=== PATIENT | male | born 1940 | race Caucasian/White ===

== ENCOUNTER 2017-06-22 06:23 | Inpatient (IN) ==
[2017-06-22] MEDS ORDERED: ceFAZolin 1,000 MG VIAL ONE (07:04)
[2017-06-22] MEDS ORDERED: SODIUM CHLORIDE 0.9% 100 ML IV ONE (07:04)
[2017-06-22] MEDS: LACTATED RINGERS 1,000 ML IV SCH (07:41)
[2017-06-22] MEDS ORDERED: HEPARIN 5,000 UNIT/1 ML VIAL ONE (07:47)
[2017-06-22] MEDS ORDERED: VANCOMYCIN 1,000 MG VIAL ONE (07:47)
[2017-06-22] MEDS ORDERED: BISACODYL 5 MG TABLET PO PRN (08:08)
[2017-06-22] MEDS ORDERED: DEXTROSE 50% 25 GM/50 ML VIAL IV PRN (08:08)
[2017-06-22] MEDS ORDERED: GLUCAGON 1 MG VIAL IM PRN (08:08)
[2017-06-22] MEDS ORDERED: ACETAMINOPHEN 325 MG TABLET PO PRN (08:08)
[2017-06-22] MEDS ORDERED: ONDANSETRON 4 MG/2 ML VIAL IV PRN (08:08)
--- NOTE | 2017-06-22 08:20 | History and Physical Update ---
History and Physical Update - Physical Exam Mental Status: alert and oriented Heart: regular rate and rhythm Lung: clear to auscultation Abdomen: within normal limits Vitals: within normal limits History and Physical Changes: Ms. Man is noted this morning on arrival to have a blood sugar of 458 he reports no changes in his diet or "cheating" but certainly his blood sugars are up this is a new setting and we are going to delay his surgery for now. He is on 20 mg of prednisone for his arthritis but has been on it for quite some time. I do note that his blood sugar and Dr. Marin office was above 300. 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 He does report having more numbness in his right leg and he normally has and I see no evidence of any acute neurologic changes otherwise. As for now we will admit him start IV fluids sliding scale and get the blood sugars under control. He does not have a regular physician here in [place] at this time.
[2017-06-22] MEDS: SODIUM CHLORIDE 0.9% 1,000 ML IV SCH ×3 (08:50→22:08)
[2017-06-22] MEDS ORDERED: SODIUM CHLORIDE 0.9% 1,000 ML IV ONE (09:36)
[2017-06-22 10:22] LABS: Calcium 8.6 MG/DL (8.5-10.1); Osmolality,Calculated 287.1 MOS/KG (273-304); Potassium 4.4 MMOL/L (3.5-5.1)
[2017-06-22] MEDS: predniSONE 20 MG TABLET PO SCH ×2 (11:16→21:00)
[2017-06-22] MEDS: PANTOPRAZOLE 40 MG TABLET PO SCH (11:16)
[2017-06-22] MEDS: LISINOPRIL 20 MG TABLET PO SCH (11:16)
[2017-06-22] MEDS: NAPROXEN 250 MG TABLET PO SCH ×2 (11:16→20:58)
[2017-06-22] MEDS: CYANOCOBALAMIN 500 MCG TABLET PO SCH (11:16)
--- NOTE | 2017-06-22 12:04 | Hospitalist Consult Note ---
<Crystal Leung - Last Filed: 06/22/17 12:00> Assessment and Plan (1) Carotid stenosis, right Status: Acute Assessment and plan: Defer to surgery. Pt scheduled to go 06/23 Current Visit: Yes (2) Diabetes Status: Chronic Assessment and plan: Accuchecks. SSI. Restart home meds. Consult DM educator. Consult expert medical writer for teachings when patient goes home. Hbg A1c in am. Current Visit: Yes (3) Dyslipidemia Status: Chronic Current Visit: Yes (4) Hypertension Status: Chronic Assessment and plan: Home medications restarted. Blood pressures noted to be stable presently. Current Visit: Yes History of Present Illness - Data of Consult Consult date: 06/22/17 - Consult Narrative Reason for consult: diabetes management History of present illness: Mr. Donovan Christiansen is a 77 year old white male with a history of hypertension, dyslipidemia, and diabetes. Pt. was recently seen in clinic by Dr. Marin and a right carotid bruit was discovered. A CTA was performed and indicated a stenosis in the area of 90% to 95%. The patient was referred to Dr. Doty and a right a carotid endarterectomy was scheduled for today. When the patient presented this morning, he was noted to have a blood glucose level of 458. Patient stated that he had not eaten anything prior to coming in this morning. Patient also reported that there have been no changes to his diet recently although patient states he eats what he wants. Hospitalist service has been consulted to manage blood sugars for patient. Patient was evaluated with present at the bedside. Accu-Cheks will be ordered and SSI has been initiated. Hemoglobin A1c will be ordered for the morning. Patient reports that his last A1c was around 6 in January. He reports compliance with medication. (Pt takes glimperide). We will also consult diabetes management to help with patient education. Additionally, patient states he is relatively new to the area and does not have a PCP. We will consult case management to assist in placement with PCP. Thank you for your consult. We will continue to follow. CC: Alli Doty MD - Home Medications and Allergies Home Medications: Home Medications Medication Instructions Recorded Confirmed Type Aspirin [Ecotrin] 81 mg PO BEDTIME 06/15/17 06/22/17 History Carvedilol 12.5 mg PO BEDTIME 06/15/17 06/22/17 History Cyanocobalamin (Vitamin B-12) 1,000 mcg PO DAILY 06/15/17 06/22/17 History [Vitamin B-12] Gabapentin Cap/Tab [Neurontin 100 mg PO BEDTIME 06/15/17 06/22/17 History Cap/Tab] Glimepiride 1 mg PO BEDTIME 06/15/17 06/22/17 History Lisinopril 20 mg PO DAILY 06/15/17 06/22/17 History Naproxen [Naprosyn Tab] 375 mg PO DAILY 06/15/17 06/22/17 History Trazodone HCl 500 mg PO BEDTIME 06/15/17 06/22/17 History predniSONE TAB [PredniSONE] 20 mg PO BID 06/15/17 06/22/17 History Simvastatin 40 mg PO BEDTIME 06/16/17 06/22/17 History Allergies/Adverse Reactions: Allergies Allergy/AdvReac Type Severity Reaction Status Date / Time No Known Allergies Allergy Unverified 06/22/17 06:47 Medical,Surgical,& Family Hx - Medical History Cardio: History of: Hypertension, Cardiovascular Problems (DR MARIN SAW PT .) Neurology: No history of: Seizures HEENT: History of: Ear Problem (PT DOES NOT WEAR HEARING AIDS.), Eye Problem ( READING GLASSES), Dental Problems (FULL SET) Endocrine: History of: Diabetes Mellitus (NIDDM), Dyslipidemia Respiratory: History of: Obstructive Sleep Apnea (CPAP) Comment Only: Respiratory Problems (FLU VAC-YES; PNEU VAC- YES. WHEEZING ON EXCERTION.TB SKIN +, CXR NEGATIVE.) Renal: History of: Renal Problems (PENILE IMPLANT 2004, 2013 AFTER HORSE ACCIDENT.) Genitourinary: History of: Bladder Problem (INCONTIENCE OF BLADDER) Gastrointestinal: History of: GERD, Hemorrhoids Musculoskeletal: History of: Back/Neck Problems, Musculoskeletal Problems ( ARTHRITIS) Other: History of: Cancer (SKIN CA NOSE) - Surgical History HEENT Surgeries: Surgical HX of: Eye Surgery (RAYSA CATRACT SX), Tonsilectomy & Adenoidectomy Abdominal Surgeries: Surgical HX of: Colonoscopy, EGD Orthopedic Surgeries: Surgical HX of;: Implanted Devices (TITANIUM RODS IN BACK. ), Spinal Surgery (BACK SURGERY 1987,2001) - Family History Family History: Reports;: Family Cancer (FATHER LUNG CA, MOTHER), Family Heart Disease (MOTHER CHF), Family Hypertension (MOTHER) - Social History Smoking Status: Never smoker Frequency of Alcohol Use: Rarely Type of Drug Use: None Marital Status: Lives With:: Spouse Functional capacity: wheelchair bound - Constitutional Constitutional: Absent: chills, fever(s) - EENT Eyes: Present: loss of vision Ears: Present: decreased hearing - Cardiovascular Cardiovascular: Present: dyspnea on exertion, edema - Respiratory Respiratory: Absent: cough - Gastrointestinal Gastrointestinal: Absent: abdominal pain, nausea, vomiting - Psychiatric Psychiatric: Absent: anxiety, confusion Exam - Constitutional Vitals: Period Temp Pulse Resp BP Sys/Sands Pulse Ox Last 24 Hr 96.9 F-98.3 F 76-80 16-20 110-149/63-78 92-97 General appearance: no acute distress, over weight - Head Head exam: Present: normal inspection, normocephalic - Eye Eye exam: Present: EOMI Pupils: Present: CARLA - ENT ENT exam: Present: normal exam - Respiratory Respiratory exam: Present: clear to auscultation bilaterally. Absent: wheezes - Cardiovascular Cardiovascular exam: Present: regular rate and rhythm - GI/Abdominal GI/Abdominal exam: Present: normal bowel sounds, soft. Absent: tenderness - Extremities Exam Extremities exam: Present: normal capillary refill, edema (RLE) - Neurological Exam Neurological exam: Present: alert, oriented X3 - Psychiatric Psychiatric exam: Present: normal affect, normal mood - Skin Skin exam: Present: normal color, warm, dry Results - Labs CBC & BMP: 06/22/17 09:49 Lab Results: I have reviewed the past 24 hour labs Quality Measures - VTE Contraindication to Pharmacological VTE Prophylaxis: Clinical assessment deems Pt at low risk, no prophalaxis needed <Amandeep Guillermo - Last Filed: 06/22/17 13:44> History of Present Illness - Consult Narrative History of present illness: Mr. Donovan Christiansen is a 77 year old male CC: Alli Doty MD Exam - Constitutional Vitals: Period Temp Pulse Resp BP Sys/Sands Pulse Ox Last 24 Hr 96.9 F-98.3 F 76-80 16-20 110-149/63-78 92-97 Results - Labs CBC & BMP: 06/22/17 09:49
[2017-06-22] MEDS: INSULIN LISPRO 100 UNIT/ML SUBCUT SCH ×3 (13:20→21:00)
--- NOTE | 2017-06-22 15:48 | Event Note ---
Mr. Man states he generally feels better will get blood sugar down a little bit we will try to work on that overnight I will still plan on a right carotid endarterectomy for tomorrow
--- NOTE | 2017-06-22 17:14 | Cardiology Consult Note ---
INeetu April RN, am scribing for, and in the presence of, Bonnie Marin MD 17:13. Assessment and Plan - Time spent with patient Time spent with patient: Greater than 30 minutes (Due to assessment, planning, documentation, medication review) (1) Carotid stenosis, right Status: Acute Current Visit: Yes (2) Hypertension Status: Chronic Current Visit: Yes (3) Diabetes Status: Chronic Current Visit: Yes (4) Dyslipidemia Status: Chronic Current Visit: Yes History of Present Illness - Data of Consult Patient: known to practice within the last 3 years Consult date: 06/22/17 Requesting Physician: Alli Doty - Consult Narrative Reason for consult: Known to you History of present illness: Peer Specialist: Dr. Marin Mr. Donovan Christiansen is a 77 year old male who is routinely followed by Dr. Marin with a history of carotid stenosis, hypertension, CAD, dyslipidemia, and NIDDM. He says he had a heart catheterization in [facility] in 2012. He states he did not get any stents, I do not have access to the records at this time. Surgical history includes penile implants bilateral carpal tunnel repair, 2 back surgeries, and bilateral cataract surgery. Family history is positive for father with lung cancer and mother with congestive heart failure. He is not a current smoker. He states he smoked for 2 years and quit in 1962. Recent CT angiogram neck revealed severe (90-95%) focal stenosis at the proximal right internal carotid artery. He was referred her Dr. Doty for further evaluation. Echocardiogram done at Dr. Marin's office May 05 of this year with ejection fraction 60%, left ventricular hypertrophy, and mild aortic stenosis. Nuclear stress testing done May 19 of this year did not indicate any ischemia. It did indicate a small fixed perfusion abnormality of mild intensity in the inferior lateral region. It was felt the patient be intermediate risk of perioperative cardiovascular complications due to his underlying comorbidities. He was admitted today for planned carotid surgery with Dr. Doty. However on arrival his blood sugar was found to be 458 and surgery was postponed. He is being started on sliding scale insulin to try to get his blood sugars under control. We have been asked to see him preoperatively. Mr. Man is seen sitting up in chair in no acute distress. He denies having any chest pain. He does report dyspnea on exertion, states this is chronic for him. He has some chronic right lower extremity edema. He denies any palpitations or dizziness. Happily, he has recently lost approximately 30 pounds by dieting. He has no acute cardiac complaints, has not developed any new chest pain. Vital signs been stable since admission. He does have a history of some urinary dribbling or incontinence. We ruled out UTI in the clinic. We will check a postvoid bladder scan while he is in the hospital. Assessment and plan: 1. Right carotid stenosis-Dr. Doty will be following and there is plan for surgical correction tomorrow. 2. Hypertension-blood pressures been stable, we will continue to monitor these and adjust medications accordingly. 3. Diabetes-blood sugar on admission was 458, hospital services has been consulted to help manage this 4. Dyslipidemia-he takes Zocor 40 mg daily CC: Alli Doty MD - Home Medications and Allergies Home Medications: Home Medications Medication Instructions Recorded Confirmed Type Aspirin [Ecotrin] 81 mg PO BEDTIME 06/15/17 06/22/17 History Carvedilol 12.5 mg PO BEDTIME 06/15/17 06/22/17 History Cyanocobalamin (Vitamin B-12) 1,000 mcg PO DAILY 06/15/17 06/22/17 History [Vitamin B-12] Gabapentin Cap/Tab [Neurontin 100 mg PO BEDTIME 06/15/17 06/22/17 History Cap/Tab] Glimepiride 1 mg PO BEDTIME 06/15/17 06/22/17 History Lisinopril 20 mg PO DAILY 06/15/17 06/22/17 History Naproxen [Naprosyn Tab] 375 mg PO DAILY 06/15/17 06/22/17 History Trazodone HCl 500 mg PO BEDTIME 06/15/17 06/22/17 History predniSONE TAB [PredniSONE] 20 mg PO BID 06/15/17 06/22/17 History Simvastatin 40 mg PO BEDTIME 06/16/17 06/22/17 History Allergies/Adverse Reactions: Allergies Allergy/AdvReac Type Severity Reaction Status Date / Time No Known Allergies Allergy Unverified 06/22/17 06:47 - Constitutional Constitutional: Present: as per HPI - EENT Eyes: Present: requires corrective lense. Absent: blurry vision Ears: Present: decreased hearing. Absent: ear pain, tinnitus Nose, mouth and throat: Present: hoarseness, sore throat. Absent: dysphagia, epistaxis, headache(s), neck pain - Cardiovascular Cardiovascular: Present: dyspnea on exertion. Absent: chest pain at rest, chest pain with activity, diaphoresis, dyspnea, edema, radiating jaw, neck or arm pain, lightheadedness, orthopnea, palpitations - Respiratory Respiratory: Present: cough, dyspnea on exertion. Absent: dyspnea, hemoptysis, wheezing - Gastrointestinal Gastrointestinal: Absent: abdominal pain, constipation, diarrhea, hematemesis, hematochezia, melena, nausea, vomiting - Genitourinary Genitourinary: Absent: dysuria, hematuria - Musculoskeletal Musculoskeletal: Present: back pain, limited range of motion, muscle weakness - Neurological Neurological: Present: abnormal gait. Absent: confusion, dizziness, frequent falls, headache(s), syncope - Psychiatric Psychiatric: Absent: anxiety, depression - Endocrine Endocrine: Present: fatigue - Hematologic/Lymphatic Hematologic/Lymphatic: Present: easy bruising. Absent: easy bleeding Medical,Surgical,& Family Hx - Medical History Cardio: History of: Hypertension, Cardiovascular Problems (DR MARIN SAW PT .) HEENT: History of: Ear Problem (PT DOES NOT WEAR HEARING AIDS.), Eye Problem ( READING GLASSES), Dental Problems (FULL SET) Endocrine: History of: Diabetes Mellitus (NIDDM), Dyslipidemia Respiratory: History of: Obstructive Sleep Apnea (CPAP) Renal: History of: Renal Problems (PENILE IMPLANT 2004, 2013 AFTER HORSE ACCIDENT.) Genitourinary: History of: Bladder Problem (INCONTIENCE OF BLADDER) Gastrointestinal: History of: GERD, Hemorrhoids Musculoskeletal: History of: Back/Neck Problems, Musculoskeletal Problems ( ARTHRITIS) Other: History of: Cancer (SKIN CA NOSE) - Surgical History HEENT Surgeries: Surgical HX of: Eye Surgery (RAYSA CATRACT SX), Tonsilectomy & Adenoidectomy Abdominal Surgeries: Surgical HX of: Colonoscopy, EGD Orthopedic Surgeries: Surgical HX of;: Implanted Devices (TITANIUM RODS IN BACK. ), Spinal Surgery (BACK SURGERY 1987,2001) - Family History Family History: Reports;: Family Cancer (FATHER LUNG CA, MOTHER), Family Heart Disease (MOTHER CHF), Family Hypertension (MOTHER) - Social History Smoking Status: Former smoker Have you smoked in the last 12 months: No Frequency of Alcohol Use: Occasionally Type of Drug Use: None Marital Status: Lives With:: Spouse Functional capacity: uses cane/walker Physical Examination Vital Signs Temp Pulse Resp BP Pulse Ox 98.3 F 78 20 149/78 92 L 06/22/17 07:00 06/22/17 07:00 06/22/17 07:00 06/22/17 07:00 06/22/17 07:00 General: Present: Appears Well, No Apparent Distress HEENT: Present: PERRL, Mucus Membranes Moist Neck: Present: Supple Neck, Midline Trachea, Bruit (On the right) Cardiac: Present: Regular Rhythm, Systolic Murmur Lungs: Present: Normal Breath Sounds, No Wheeze, Rales, Rhonchi. Absent: Oxygen Neuro: Absent: Resting Tremor, Essential Tremor Abdomen: Present: Soft, Active Bowel Sounds, Non-Tender. Absent: Distended Skin: Absent: Rash, Ulceration Musculoskeletal: Present: Decreased Range of Motion, Pain in Joint Gait: Present: Poor Gait Extremities: Present: Normal Upper Extr. Pulses, Normal Lower Extr. Pulses, +1 Edema (Right lower extremity). Absent: Normal Gait Result/EKG - Labs CBC & BMP: 06/22/17 09:49 Labs: Laboratory Results - last 24 hr 06/22/17 06/22/17 07:41 07:44 POC Glucose 428 H 458 H Quality Measures - VTE Contraindication to Pharmacological VTE Prophylaxis: Clinical assessment deems Pt at low risk, no prophalaxis needed Tomas Dorsey Jennifer, MD, personally performed the services described in this documentation, ascribed by Sophia De Anda RN in my presence, and it is both accurate and complete .
[2017-06-22] MEDS: ASPIRIN EC 81 MG TABLET PO SCH (20:58)
[2017-06-22] MEDS ORDERED: traZODone 50 MG TABLET PO SCH (21:00)
[2017-06-22] MEDS ORDERED: GLIMEPIRIDE 2 MG TABLET PO SCH (21:00)
[2017-06-22] MEDS: SIMVASTATIN 40 MG TABLET PO SCH (21:00)
[2017-06-22] MEDS: CARVEDILOL 12.5 MG TABLET PO SCH (21:00)
[2017-06-22] MEDS: GABAPENTIN 100 MG CAPSULE PO SCH (21:00)
[2017-06-23] MEDS: INSULIN LISPRO 100 UNIT/ML SUBCUT SCH ×6 (03:39→20:10)
[2017-06-23] MEDS: SODIUM CHLORIDE 0.9% 1,000 ML IV SCH (05:48)
[2017-06-23 06:16] LABS: Calcium 8.3 MG/DL (8.5-10.1); Osmolality,Calculated 290.4 MOS/KG (273-304); Potassium 4.6 MMOL/L (3.5-5.1)
[2017-06-23] MEDS ORDERED: HEPARIN/NACL 0.9% 2 UNITS/ML 500 ML IV ONE (07:36)
[2017-06-23] MEDS ORDERED: HEPARIN 10,000 UNIT/10 ML VIAL ONE ×2 (07:36→14:03)
[2017-06-23] MEDS ORDERED: PHENYLEPHRINE DRIP 20 MG/250 ML PREMIX IV ONE (07:36)
[2017-06-23] MEDS ORDERED: NITROGLYCERIN DRIP 50 MG/250 ML BOTTLE IV ONE (07:36)
[2017-06-23] MEDS: GLIMEPIRIDE 2 MG TABLET PO SCH (08:14)
[2017-06-23] MEDS: LISINOPRIL 20 MG TABLET PO SCH (08:15)
[2017-06-23] MEDS: LACTATED RINGERS 1,000 ML IV SCH ×3 (08:50→22:30)
[2017-06-23] MEDS: PANTOPRAZOLE 40 MG TABLET PO SCH (08:51)
[2017-06-23] MEDS: predniSONE 20 MG TABLET PO SCH ×2 (08:51→21:21)
[2017-06-23] MEDS: NAPROXEN 250 MG TABLET PO SCH ×2 (08:51→21:21)
[2017-06-23] MEDS: CYANOCOBALAMIN 500 MCG TABLET PO SCH (08:51)
[2017-06-23] MEDS ORDERED: TISSUE ADHESIVE 1 EACH APPLICATOR TOP ONE (11:05)
[2017-06-23] MEDS ORDERED: HEPARIN 5,000 UNIT/1 ML VIAL ONE (11:05)
[2017-06-23] MEDS ORDERED: VANCOMYCIN 1,000 MG VIAL ONE (11:05)
[2017-06-23] MEDS ORDERED: HYDROmorphone 2 MG/1 ML VIAL IV PRN ×2 (13:07)
[2017-06-23] MEDS ORDERED: NALOXONE 0.4 MG/ML VIAL IV PRN (13:07)
[2017-06-23] MEDS ORDERED: DOPamine 800 MG/250 ML PREMIX IV PRN (13:07)
[2017-06-23] MEDS ORDERED: DEXTROSE 50% 25 GM/50 ML SYRINGE IV PRN (13:07)
[2017-06-23] MEDS ORDERED: PROMETHAZINE 25 MG/1 ML VIAL IM PRN (13:07)
[2017-06-23] MEDS ORDERED: oxyCODONE/ACETAMINOPHEN 5-325 MG TABLET PO PRN ×2 (13:07)
[2017-06-23] MEDS ORDERED: ONDANSETRON 4 MG/2 ML VIAL IV PRN (13:07)
[2017-06-23] MEDS ORDERED: GLUCAGON 1 MG VIAL IM PRN (13:07)
--- NOTE | 2017-06-23 13:15 | Operative Note ---
Date of procedure: 06/23/17 Procedure: Dr. Doty operative report Wero Man . Surgeon: Soren Anesthesia: Workup general endotracheal Preoperative diagnosis: High-grade right internal carotid artery stenosis Postoperative diagnosis: Same Procedure: Right carotid endarterectomy with a bovine pericardial patch Indications for the procedure: Mr. aMn 77-year-old man is found to have a very high-grade stenosis of his right internal carotid artery. Appears to be asymptomatic but it has a greater than 90% stenosis with extensive plaquing. I offered a right carotid endarterectomy explaining the alternatives risks and complications which he understands and accepts. Description of the procedure: After the induction of general endotracheal anesthesia the patient was placed in supine position his neck modestly extended and turned to the left right neck is prepped with ChloraPrep and draped in the usual fashion. Made an incision in a skin crease below the angle of mandible and carried this into the subplatysmal space. Small anterior jugular vein was ligated with 2 oh silks hemoclips and divided I then dissected anterior to the internal jugular vein located the anterior facial vein and this was doubly ligated hemoclipped and divided as well the common carotid artery was dissected free and controlled with a maxi vessel loop and the patient received 5000 units of intravenous heparin. Continued dissecting along the common carotid past the bifurcation identified the hypoglossal nerve and ansa hypoglossi preserve these nerves separately controlled the superior thyroid external carotid and internal carotid arteries above the diseased portions. With adequate anticoagulation the vessel loops were brought up to control the artery and a longitudinal arteriotomy was made from the common carotid through the diseased bifurcation into the more normal distal internal carotid artery. There was indeed an extensive plaque with loose plaque material in an ulcer. There was moderate backbleeding I placed an in-line Estrada-Inahara shunt first into the internal carotid artery allowing it to backflush and placing into the common carotid to reestablish flow. Standard endarterectomy was carried out removing the diseased intima and media from the carotid bifurcation it feathered out well in the eversion endarterectomy on the external and then feathered out very well on the internal carotid arteries well loose flaps of medial removed under loupe magnification endarterectomized segment was heparinized flushed with heparinized saline. The arteriotomy was closed with a 6-0 Prolene suture and a bovine pericardial patch shunt was removed and appropriate time backflushing internal and external carotid arteries and flushing again with heparinized saline. The arteriotomy closed flow was initiated from the common carotid into the extra internal and then restored into the internal carotid artery. Doppler flow in all 3 vessels was quite good hemostasis was reasonable heparin was partially reversed with 25 mg of protamine. After reasonable period of observation we have a good dry anastomosis good flow in the internal and external carotid arteries by Doppler the neck was irrigated there is a pledget of Surgicel placed over the arteriotomy and the neck was drained with 1/4 inch Alcides drain incision closed with 3-0 Monocryl in the platysma skin clips on the skin. Blood loss is estimated 100 cc sponge needle and his counts are correct and the patient taken to recovery in stable condition Surgeon / Physician: Alli Doty Results - Labs CBC & BMP: 06/23/17 05:03 Discharge Plan - Discharge Medications No Action predniSONE TAB [PredniSONE] 20 mg PO BID Naproxen [Naprosyn Tab] 375 mg PO DAILY Glimepiride 1 mg PO BEDTIME Cyanocobalamin (Vitamin B-12) [Vitamin B-12] 1,000 mcg PO DAILY Carvedilol 12.5 mg PO BEDTIME Lisinopril 20 mg PO DAILY Aspirin [Ecotrin] 81 mg PO BEDTIME Simvastatin 40 mg PO BEDTIME Gabapentin Cap/Tab [Neurontin Cap/Tab] 100 mg PO BEDTIME Trazodone HCl 50 mg PO BEDTIME - Follow Up or Referral - Forms/Instructions
[2017-06-23] MEDS ORDERED: PROPOFOL 200 MG/20 ML VIAL IV ONE (13:45)
[2017-06-23] MEDS ORDERED: MIDAZOLAM 2 MG/2 ML VIAL ONE (13:45)
[2017-06-23] MEDS ORDERED: SEVOFLURANE 1 UNIT/15 MINUTE INH ONE (13:46)
[2017-06-23] MEDS ORDERED: fentaNYL 100 MCG/2 ML VIAL ONE (13:46)
[2017-06-23] MEDS ORDERED: PROTAMINE SULFATE 50 MG/5 ML VIAL IV ONE (13:46)
[2017-06-23] MEDS ORDERED: ROCURONIUM 100 MG/10 ML VIAL IV ONE (13:46)
[2017-06-23] MEDS ORDERED: SUCCINYLCHOLINE 200 MG/10 ML VIAL ONE (13:46)
[2017-06-23] MEDS ORDERED: ePHEDrine 50 MG/ML AMP ONE (13:49)
--- NOTE | 2017-06-23 14:45 | Event Note ---
Mr. 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
--- NOTE | 2017-06-23 16:12 | Event Note ---
Mr. Man is awake alert oriented with good neurologic status no change in face or handgrip and neck looks good with no hematoma
--- NOTE | 2017-06-23 17:12 | Cardiology Progress Note ---
I, Sophia De Anda RN, am scribing for, and in the presence of, Bonnie Marin MD 17:12. Assessment and Plan (1) Carotid stenosis, right Status: Acute Current Visit: Yes (2) Hypertension Status: Chronic Current Visit: Yes (3) Diabetes Status: Chronic Current Visit: Yes (4) Dyslipidemia Status: Chronic Current Visit: Yes Cardiology - PN: Subj Interval history: Mailroom Clerk: Dr. Marin SUMMARY: Mr. Donovan Christiansen is a 77 year old male who is routinely followed by Dr. Marin with a history of carotid stenosis, hypertension, CAD, dyslipidemia, and NIDDM. He says he had a heart catheterization in [facility] in 2012. He states he did not get any stents, I do not have access to the records at this time. Surgical history includes penile implants bilateral carpal tunnel repair, 2 back surgeries, and bilateral cataract surgery. Family history is positive for father with lung cancer and mother with congestive heart failure. He is not a current smoker. He states he smoked for 2 years and quit in [address]. Recent CT angiogram neck revealed severe (90-95%) focal stenosis at the proximal right internal carotid artery. He was referred her Dr. Doty for further evaluation. Echocardiogram done at Dr. Marin's office May 05 of this year with ejection fraction 60%, left ventricular hypertrophy, and mild aortic stenosis. Nuclear stress testing done May 19 of this year did not indicate any ischemia. It did indicate a small fixed perfusion abnormality of mild intensity in the inferior lateral region. It was felt the patient be intermediate risk of perioperative cardiovascular complications due to his underlying comorbidities. He was admitted today for planned carotid surgery with Dr. Doty. However on arrival his blood sugar was found to be 458 and surgery was postponed. He is being started on sliding scale insulin to try to get his blood sugars under control. We have been asked to see him preoperatively. June 22, 2017: Mr. Man is seen sitting up in chair in no acute distress. He denies having any chest pain. He does report dyspnea on exertion, states this is chronic for him. He has some chronic right lower extremity edema. He denies any palpitations or dizziness. Happily, he has recently lost approximately 30 pounds by dieting. He has no acute cardiac complaints, has not developed any new chest pain. Vital signs been stable since admission. He does have a history of some urinary dribbling or incontinence. We ruled out UTI in the clinic. We will check a postvoid bladder scan while he is in the hospital. June 23, 2017: Mr. Man is seen today without complaint of chest pain or shortness of breath. He is scheduled for right carotid endarterectomy today with Dr. Doty. Vital signs have been stable throughout the night. His blood sugar has improved this morning to 27, all other labs unremarkable. Assessment and plan: 1. Right carotid stenosis-Dr. Doty will be following, plan is for right carotid enterectomy today 2. Hypertension-blood pressures been stable, we will continue to monitor these and adjust medications accordingly. 3. Diabetes-hospital services is following this 4. Dyslipidemia-he takes Zocor 40 mg daily Exam (Progress Note) - Constitutional Vitals: Period Temp Pulse Resp BP Sys/Sands Pulse Ox Last 24 Hr 96.9 F-98.3 F 71-80 16-20 100-151/59-74 94-97 Exam: General: Present: Appears Well, No Apparent Distress HEENT: Present: PERRL, Mucus Membranes Moist Neck: Present: Supple Neck, Midline Trachea, Bruit (On the right) Cardiac: Present: Regular Rhythm, Systolic Murmur Lungs: Present: Normal Breath Sounds, No Wheeze, Rales, Rhonchi. Absent: Oxygen Neuro: Absent: Resting Tremor, Essential Tremor Abdomen: Present: Soft, Active Bowel Sounds, Non-Tender. Absent: Distended Skin: Absent: Rash, Ulceration Musculoskeletal: Present: Decreased Range of Motion, Pain in Joint Gait: Present: Poor Gait Extremities: Present: Normal Upper Extr. Pulses, Normal Lower Extr. Pulses, +1 Edema (Right lower extremity). Absent: Normal Gait Result/EKG - Labs CBC & BMP: 06/23/17 05:03 Lab Results: I have reviewed the past 24 hour labs Labs: Laboratory Results - last 24 hr 06/22/17 06/22/17 06/22/17 09:49 13:16 16:37 Sodium 135 L Potassium 4.4 Chloride 100 Carbon Dioxide 27 Anion Gap 12.4 BUN 24 H Creatinine 1.20 GFR Calculation 73 BUN/Creatinine Ratio 20.00 Glucose 354 H POC Glucose 194 H 292 H Hemoglobin A1c Calculated Osmolality 287.1 Calcium 8.6 06/22/17 06/22/17 06/23/17 20:11 23:35 03:31 Sodium Potassium Chloride Carbon Dioxide Anion Gap BUN Creatinine GFR Calculation BUN/Creatinine Ratio Glucose POC Glucose 123 H 304 H 278 H Hemoglobin A1c Calculated Osmolality Calcium 06/23/17 06/23/17 06/23/17 05:03 05:03 07:00 Sodium 140 Potassium 4.6 Chloride 109 H Carbon Dioxide 26 Anion Gap 9.6 BUN 26 H Creatinine 1.00 GFR Calculation 92 BUN/Creatinine Ratio 26.00 H Glucose 226 H POC Glucose 227 H Hemoglobin A1c 13.3 H Calculated Osmolality 290.4 Calcium 8.3 L Quality Measures - VTE Contraindication to Pharmacological VTE Prophylaxis: Clinical assessment deems Pt at low risk, no prophalaxis needed Specialty Discharge - Follow Up or Referrals Follow up with: Alli Doty MD [Physician] - 07/04/17 2:45 pm (APPT.WITH JULY 04 @ 2:45) I, Bonnie Marin MD, personally performed the services described in this documentation, ascribed by Sophia De Anda RN in my presence, and it is both accurate and complete .
--- NOTE | 2017-06-23 20:36 | Hospitalist Progress Note ---
Hospitalist: Subjective Interval history: Patient is feeling well today. He is scheduled for carotid artery surgery today. Exam - Constitutional Vitals: Period Temp Pulse Resp BP Sys/Sands Pulse Ox Last 24 Hr 96.9 F-98.3 F 59-76 14-21 104-156/37-75 89-99 Exam: General: No Acute Distress HEENT: Normocephalic, atraumatic, Extra ocular movements intact Neck: Right carotid bruit Chest: Clear to auscultation B/L CV: S1 + S2 audible without murmur, gallop or rub Abd: soft, NT, Non-distended, BS + Ext: No edema Skin: No purpura, bruising or rash Rheumatologic: No Joint deformities Neurologic: Strength 5/5 all extremities, no gross sensory deficits Results - Labs CBC & BMP: 06/23/17 05:03 - Impressions Assessment and Plan (1) Carotid stenosis, right Status: Acute Assessment and plan: Patient is scheduled for a right carotid endarterectomy today Current Visit: Yes (2) Diabetes mellitus type II Status: Chronic Assessment and plan: Accuchecks. SSI. for teachings when patient goes home. Hbg A1c was significantly elevated at 13.3. Diabetes education. We will continue to adjust diabetes medications based on his Accu-Cheks Current Visit: Yes (3) Dyslipidemia Status: Chronic Current Visit: Yes Continue statin (4) Hypertension, Ess Status: Chronic Assessment and plan: Current Visit: Yes Quality Measures - VTE Contraindication to Pharmacological VTE Prophylaxis: Clinical assessment deems Pt at low risk, no prophalaxis needed Specialty Discharge - Follow Up or Referrals Follow up with: Alli Doty MD [Physician] - 07/04/17 2:45 pm (APPT.WITH JULY 04 @ 2:45)
[2017-06-23] MEDS ORDERED: traZODone 50 MG TABLET PO SCH (21:00)
[2017-06-23] MEDS: ASPIRIN EC 81 MG TABLET PO SCH (21:21)
[2017-06-23] MEDS: GABAPENTIN 100 MG CAPSULE PO SCH (21:21)
[2017-06-23] MEDS: SIMVASTATIN 40 MG TABLET PO SCH (21:21)
[2017-06-23] MEDS: CARVEDILOL 12.5 MG TABLET PO SCH (21:26)
[2017-06-24] MEDS: INSULIN LISPRO 100 UNIT/ML SUBCUT SCH ×4 (00:16→12:42)
--- NOTE | 2017-06-24 08:35 | Hospitalist Progress Note ---
Assessment and Plan (1) Current chronic use of systemic steroids Status: Acute Assessment and plan: Patient will need to be tapered dose steroid of the course of next 2 weeks. He has used this for a long time. Tapered dose as well to use prednisone instead of Medrol dose. Current Visit: Yes (2) Carotid stenosis, right Status: Acute Current Visit: Yes (3) Hypertension Status: Chronic Assessment and plan: Under control continue medical Current Visit: Yes (4) Diabetes Status: Chronic Assessment and plan: Poorly controlled is 5 the A1c of 13%. Patient will need basal insulin coverage versus other oral hypoglycemics. No metformin at this time given for that he just used IV contrast. A glucoseuric suggested at the time of discharge. The patient on Lantus insulin 10 units at bedtime Current Visit: Yes (5) Dyslipidemia Status: Chronic Assessment and plan: I am checking his lipid profile on yesterday morning's blood. This gentleman may need to be on atorvastatin in place of simvastatin. Never use atorvastatin before. There is on is the fact that atorvastatin has been studied and does have effective remodeling and recanalization of arterial occlusions in atherosclerotic vascular disease. Current Visit: Yes Hospitalist: Subjective Interval history: Patient has been seen interviewed and examined and chart has been reviewed, admitted to hospital with a critical proximal right internal carotid stenosis status post carotid endarterectomy. He is doing well patient is seen in consultation with vascular surgery for medical clearance. I do not have a lipid panel on him is to be drawn on yesterday's blood. A1c is quite high at 13 % indicating that his diabetes has been taken care of more strictly. Is currently only on to glimepiride for basal diabetes treatment and covered with lispro insulin for high sugars. Is also taking prednisone 20 mg twice daily which is raising his sugar. He states that he has been on the steroids for a long time because his doctor in [place] put him morning for management of his degenerative arthritis of the fingers. I believe he needs to be tapered off the steroids in the long run he will need to see a natural science manager but the short- term is give him out analgesia like tramadol does not have as much addictive potential. Exam - Constitutional Vitals: Period Temp Pulse Resp BP Sys/Sands Pulse Ox Last 24 Hr 96.9 F-98.3 F 59-75 13-22 104-157/37-78 89-99 General appearance: no acute distress, morbidly obese - Head Head exam: Present: normal inspection, normocephalic, atraumatic - Eye Eye exam: Present: EOMI, other (Anicteric sclera no conjunctival petechia) Pupils: Present: CARLA - ENT ENT exam: Present: normal oropharynx - Neck Neck exam: Present: other (Patient has had a right-sided endarterectomy with a dressing on. No advancing cellulitis) - Respiratory Respiratory exam: Present: clear to auscultation bilaterally - Cardiovascular Cardiovascular exam: Present: regular rate and rhythm - GI/Abdominal GI/Abdominal exam: Present: normal bowel sounds, soft - Extremities Exam Extremities exam: Present: full ROM, other (Noted some puffiness in the interphalangeal joints of the hands. Is suggestive of osteoarthritis) - Neurological Exam Neurological exam: Present: alert, oriented X3, CN II-XII intact - Psychiatric Psychiatric exam: Present: normal affect, normal mood - Skin Skin exam: Present: normal color, warm, dry, other (Patient has a right-sided endarterectomy) Results - Labs CBC & BMP: 06/23/17 05:03 Lab Results: I have reviewed the past 24 hour labs (Noted hyperglycemia. To taper him off the steroids slowly.) Quality Measures - VTE Contraindication to Pharmacological VTE Prophylaxis: Clinical assessment deems Pt at low risk, no prophalaxis needed Specialty Discharge - Follow Up or Referrals Follow up with: Alli Doty MD [Physician] - 07/04/17 2:45 pm (APPT.WITH JULY 04 @ 2:45)
[2017-06-24] MEDS: GLIMEPIRIDE 2 MG TABLET PO SCH (08:40)
[2017-06-24] MEDS: LACTATED RINGERS 1,000 ML IV SCH (08:50)
[2017-06-24] MEDS ORDERED: predniSONE 20 MG TABLET PO SCH (09:00)
[2017-06-24] MEDS ORDERED: CLOPIDOGREL 75 MG TABLET PO SCH (09:00)
[2017-06-24] MEDS: LISINOPRIL 20 MG TABLET PO SCH (09:14)
[2017-06-24] MEDS: CYANOCOBALAMIN 500 MCG TABLET PO SCH (09:14)
[2017-06-24] MEDS: NAPROXEN 250 MG TABLET PO SCH (09:14)
[2017-06-24] MEDS: PANTOPRAZOLE 40 MG TABLET PO SCH (09:14)
--- NOTE | 2017-06-24 09:15 | Event Note ---
Donovan had a right carotid endarterectomy yesterday and is doing well he is neurologically intact has a chronic lower extremity weakness due to a remote accident with back injury. Otherwise he has good handgrip in both hands tongue midline no facial asymmetry awake alert and answering questions appropriately his neck looks good and I removed his Alcides drain. He is currently on aspirin and Plavix and should continue those be discharged with them. On admission he actually had a blood sugar of 458 and appears that his blood sugars are running high he has been on chronic prednisone for a number of years for his rheumatoid arthritis. Hospitalist Dr. Eubanks is working toward weaning from the prednisone Mr. Man is been a resident of [facility] and is now moving to the [facility] and needs a regular physician. I would like for him to see 1 of our internists here possibly Dr. Mitchell who also has a new contact center director in his group that may be helpful with managing the rheumatoid arthritis. I think from strictly the standpoint of surgery Mr. Man could probably be discharged this evening but I want to be certain that he will have follow-up with internal medicine to help him regain control of his diabetes.
[2017-06-24 09:24] LABS: Risk Ratio 3.65; VLDL CHOLESTEROL 39.4 MG/DL
[2017-06-24 10:46] VITALS: BP 94/50
--- NOTE | 2017-06-24 14:23 | Pathology Report from [facility] ---
[facility] ACCESSION # : [id number] PATIENT NAME : Bill Man ORDERING DR : MARY CHRISTENSEN MD CLINICAL HX: Right internal carotid artery stenosis POST-OP DX: Same SPECIMEN INFO: Right carotid plaque GROSS DESCRIPTION: The specimen is received in formalin labeled with the patients name and consists of an endarterectomy measuring 3.5 x 1.0 cm. Director [employer] sections submitted in one cassette following decalcification. DIAGNOSIS FOR BILL MAN: RIGHT CAROTID ARTERY, ENDARTERECTOMY: Calcified atheromatous plaque. COLLECTED DATE: 06/23/2017 [facility] REPORT DATE: 06/24/2017 ELECTRONICALLY SIGNED BY: Milton Omalley M.D. 06/24/2017 - 9:27:25 [facility]
--- NOTE | 2017-06-24 15:13 | Discharge Summary ---
Hospital Course - Hospital Course Hospital Course: Wero Man is a 77-year-old man admitted with a asymptomatic high-grade stenosis of the right internal carotid artery. He underwent was admitted with a blood sugar of 458 we therefore delayed his surgery overnight and obtain better control of his blood sugars and then performed a right carotid endarterectomy yesterday. He is done quite well he is fully awake alert oriented ambulating tolerating his diet his blood sugars are under better control. This point is felt that his long-term prednisone use is contributing to the difficulties of his blood sugar control he has been on that for rheumatoid arthritis for a number of years but is now moved to [place] and and is need of a physician here. I have contacted Dr. Gan who is agreed to take him as a patient and will adjust his glycemic control as well as the steroids he is taking. Mr. Man will be discharged on aspirin for and Plavix as well as his normal home management due to lower blood pressure I am asking him to hold his lisinopril for now. We will ask him to continue his weaning from the prednisone as prescribed by Dr. Eubanks I will see him in office next week for staple removal I did discuss with him and his wound care exercise restrictions expected recovery and possible complications. Specialty Discharge - Follow Up or Referrals Follow up with: Neo Mitchell MD [Physician] - 07/07/17 12:45 pm (Appt. @ 12:45) Alli Doty MD [Physician] - 06/30/17 9:00 am (APPT.WITH JUNE 30 @ 9:00) Discharge Plan - Discharge Data Disposition: Disch To Home/Self Care Condition at Discharge: Stable Discharge Diet: diabetic diet Activity: resume usual activities as tolerated Hygiene: may shower Weight Bearing at Discharge: weight bear as tolerated Driving: not until seen by doctor Contact your physician if you experience:: fever over 101, Redness or swelling, Bleeding - Discharge Medications New HYDROcodone/ACETAMIN 7.5-325 [[place] 7.5-325] 1 tablet PO Q4H PRN #20 tablet PRN Reason: Pain Moderate (4-7) Insulin Glargine [Lantus] 15 unit SUBCUT BEDTIME #30 unit predniSONE TAB [PredniSONE] 20 mg PO QOTHER DAY #14 tablet predniSONE TAB [PredniSONE] 5 mg PO DAILY #14 tablet Bisacodyl Tab [Dulcolax Tab] 10 mg PO DAILY PRN tablet PRN Reason: Constipation Clopidogrel [Plavix] 75 mg PO DAILY #60 tablet predniSONE TAB [PredniSONE] 10 mg PO QOTHER DAY #14 tablet Continue Naproxen [Naprosyn Tab] 375 mg PO DAILY Glimepiride 1 mg PO BEDTIME Cyanocobalamin (Vitamin B-12) [Vitamin B-12] 1,000 mcg PO DAILY Carvedilol 12.5 mg PO BEDTIME Aspirin [Ecotrin] 81 mg PO BEDTIME Simvastatin 40 mg PO BEDTIME Gabapentin Cap/Tab [Neurontin Cap/Tab] 100 mg PO BEDTIME Trazodone HCl 50 mg PO BEDTIME Discontinued predniSONE TAB [PredniSONE] 20 mg PO BID Lisinopril 20 mg PO DAILY - Follow Up or Referral Follow Up: Neo Mitchell MD [Physician] - 07/07/17 12:45 pm (Appt. @ 12:45) Alli Doty MD [Physician] - 06/30/17 9:00 am (APPT.WITH JUNE 30 @ 9:00) - Forms/Instructions Instructions: Carotid Endarterectomy (DC) Exam - Constitutional Vitals: Period Temp Pulse Resp BP Sys/Sands Pulse Ox Last 24 Hr 96.9 F-98.3 F 59-85 13-22 94-157/37-78 89-99 Discharge Results Procedures and tests throughout hospitalization: Pending Orders 06/23/17 14:00 MRSA Surveillence, Inf Control Routine Labs on day of discharge: Labs from last 24 hours 06/24/17 06/24/17 06/24/17 12:30 08:45 07:39 POC Glucose 176 H 236 H Triglycerides 197 H Cholesterol 168 LDL Cholesterol 83.0 VLDL Cholesterol 39.4 HDL Cholesterol 46 Heart Disease Risk Ratio 3.65 06/24/17 06/24/17 06/23/17 05:27 00:14 20:03 POC Glucose 191 H 122 H 141 H Triglycerides Cholesterol LDL Cholesterol VLDL Cholesterol HDL Cholesterol Heart Disease Risk Ratio 06/23/17 14:42 POC Glucose 170 H Triglycerides Cholesterol LDL Cholesterol VLDL Cholesterol HDL Cholesterol Heart Disease Risk Ratio DS: Provider Date of admission: 06/22/17 06:23 Primary care physician: . No PCP Attending physician on admission: Alli Doty MD Consults: 06/22/17 08:11 Consult to Physician [CONS] Routine Comment: hyperglycemia Consulting Provider: [facility] Consulting Provider Notified: Yes When should Consulting Provider be notified: Now Person Notified: scot called Date Notified: 06/22/17 Time Notified: 09:14 06/22/17 08:12 Consult to Physician [CONS] Routine Comment: patient known to you Consulting Provider: Bonnie Marin Consulting Provider Notified: Yes When should Consulting Provider be notified: Now Person Notified: david called Date Notified: 06/22/17 Time Notified: 09:11 06/22/17 10:49 Consult to Diabetes Center, Educator [CONS] Routine Reason for Pathology Technologist: Diabetes Education 06/22/17 10:51 Consult to Case Mgmt/Social Srvs [CONS] Routine Reason for Case Mgmt/Social Srvs: Other Consult Comment: PCP referral 06/22/17 12:01 Consult to Dietitian [CONS] Routine Reason for Dietitian: Other Consult Comment: diabetic diet education for patient and 06/24/17 09:00 Consult to Sleep Center [CONS] Routine Reason for Sleep Center: Other Consult Comment: Sleep score 7,pt states his home CPAP mask doesn't fit so he won't wear it Discharging clinician: Alli Doty MD
--- NOTE | 2017-06-24 15:31 | Discharge Summary ---
Hospital Course - Hospital Course Hospital Course: Wero Man is a 77-year-old man admitted with a asymptomatic high-grade stenosis of the right internal carotid artery. He underwent was admitted with a blood sugar of 458 we therefore delayed his surgery overnight and obtain better control of his blood sugars and then performed a right carotid endarterectomy yesterday. He is done quite well he is fully awake alert oriented ambulating tolerating his diet his blood sugars are under better control. This point is felt that his long-term prednisone use is contributing to the difficulties of his blood sugar control he has been on that for rheumatoid arthritis for a number of years but is now moved to [place] and and is need of a physician here. I have contacted Dr. Gan who is agreed to take him as a patient and will adjust his glycemic control as well as the steroids he is taking. Mr. Man will be discharged on aspirin for and Plavix as well as his normal home management due to lower blood pressure I am asking him to hold his lisinopril for now. We will ask him to continue his weaning from the prednisone as prescribed by Dr. Eubanks I will see him in office next week for staple removal I did discuss with him and his wound care exercise restrictions expected recovery and possible complications. Diagnosis - Discharge Diagnosis (1) Current chronic use of systemic steroids Status: Acute (2) Carotid stenosis, right Status: Acute (3) Hypertension Status: Chronic (4) Diabetes Status: Chronic (5) Dyslipidemia Status: Chronic Specialty Discharge - Follow Up or Referrals Follow up with: Neo Mitchell MD [Physician] - 07/07/17 12:45 pm (Appt. @ 12:45) Alli Doty MD [Physician] - 06/30/17 9:00 am (APPT.WITH JUNE 30 @ 9:00) Discharge Plan - Discharge Data Disposition: Disch To Home/Self Care - Discharge Medications New HYDROcodone/ACETAMIN 7.5-325 [[place] 7.5-325] 1 tablet PO Q4H PRN #20 tablet PRN Reason: Pain Moderate (4-7) Insulin Glargine [Lantus] 15 unit SUBCUT BEDTIME #30 unit predniSONE TAB [PredniSONE] 20 mg PO QOTHER DAY #14 tablet predniSONE TAB [PredniSONE] 5 mg PO DAILY #14 tablet Bisacodyl Tab [Dulcolax Tab] 10 mg PO DAILY PRN tablet PRN Reason: Constipation Clopidogrel [Plavix] 75 mg PO DAILY #60 tablet predniSONE TAB [PredniSONE] 10 mg PO QOTHER DAY #14 tablet Continue Naproxen [Naprosyn Tab] 375 mg PO DAILY Glimepiride 1 mg PO BEDTIME Cyanocobalamin (Vitamin B-12) [Vitamin B-12] 1,000 mcg PO DAILY Carvedilol 12.5 mg PO BEDTIME Aspirin [Ecotrin] 81 mg PO BEDTIME Simvastatin 40 mg PO BEDTIME Gabapentin Cap/Tab [Neurontin Cap/Tab] 100 mg PO BEDTIME Trazodone HCl 50 mg PO BEDTIME Discontinued predniSONE TAB [PredniSONE] 20 mg PO BID Lisinopril 20 mg PO DAILY - Follow Up or Referral Follow Up: Neo Mitchell MD [Physician] - 07/07/17 12:45 pm (Appt. @ 12:45) Alli Doty MD [Physician] - 06/30/17 9:00 am (APPT.WITH JUNE 30 @ 9:00) - Forms/Instructions Instructions: Carotid Endarterectomy (DC) Exam - Constitutional Vitals: Period Temp Pulse Resp BP Sys/Sands Pulse Ox Last 24 Hr 96.9 F-98.3 F 59-85 13-22 94-157/37-78 89-99 Discharge Results Procedures and tests throughout hospitalization: Pending Orders 06/23/17 14:00 MRSA Surveillence, Inf Control Routine Labs on day of discharge: Labs from last 24 hours 06/24/17 06/24/17 06/24/17 12:30 08:45 07:39 POC Glucose 176 H 236 H Triglycerides 197 H Cholesterol 168 LDL Cholesterol 83.0 VLDL Cholesterol 39.4 HDL Cholesterol 46 Heart Disease Risk Ratio 3.65 06/24/17 06/24/17 06/23/17 05:27 00:14 20:03 POC Glucose 191 H 122 H 141 H Triglycerides Cholesterol LDL Cholesterol VLDL Cholesterol HDL Cholesterol Heart Disease Risk Ratio 06/23/17 14:42 POC Glucose 170 H Triglycerides Cholesterol LDL Cholesterol VLDL Cholesterol HDL Cholesterol Heart Disease Risk Ratio DS: Provider Date of admission: 06/22/17 06:23 Primary care physician: . No PCP Attending physician on admission: Alli Doty MD Consults: 06/22/17 08:11 Consult to Physician [CONS] Routine Comment: hyperglycemia Consulting Provider: [facility] Consulting Provider Notified: Yes When should Consulting Provider be notified: Now Person Notified: scot called Date Notified: 06/22/17 Time Notified: 09:14 06/22/17 08:12 Consult to Physician [CONS] Routine Comment: patient known to you Consulting Provider: Bonnie Marin Consulting Provider Notified: Yes When should Consulting Provider be notified: Now Person Notified: david called Date Notified: 06/22/17 Time Notified: 09:11 06/22/17 10:49 Consult to Diabetes Center, Educator [CONS] Routine Reason for Direct Casting Operator: Diabetes Education 06/22/17 10:51 Consult to Case Mgmt/Social Srvs [CONS] Routine Reason for Case Mgmt/Social Srvs: Other Consult Comment: PCP referral 06/22/17 12:01 Consult to Dietitian [CONS] Routine Reason for Dietitian: Other Consult Comment: diabetic diet education for patient and 06/24/17 09:00 Consult to Sleep Center [CONS] Routine Reason for Sleep Center: Other Consult Comment: Sleep score 7,pt states his home CPAP mask doesn't fit so he won't wear it Discharging clinician: Sonido Eubanks MD
[2017-06-24] MEDS ORDERED: INSULIN GLARGINE 100 UNIT/ML SUBCUT SCH (21:00)
[2017-06-29] MEDS ORDERED: predniSONE 20 MG TABLET PO SCH (09:00)
[2017-07-04] MEDS ORDERED: predniSONE 10 MG TABLET PO SCH (09:00)
[2017-07-08] MEDS ORDERED: predniSONE 10 MG TABLET PO SCH (09:00)
[2017-07-15] MEDS ORDERED: predniSONE 5 MG TABLET PO SCH (09:00)
== END 2017-06-24 15:55 | disposition home or self-care (01) | DRG 39 ==
LOC: N.SDSINP 06:23 → N.3E 09:05 → N.ICU 06-23 14:15 → N.3E 06-24 11:50
PROVIDERS: ADMIT Surgery; ATTEND Surgery

== ENCOUNTER 2022-12-23 21:25 | Inpatient (IN) ==
[2022-12-23 22:31] LABS: Basophils % 0.3 % (0.0-0.8); Eosinophils # 0.1 10*3/uL (0.0-0.87); Eosinophils % 1.2 % (0.00-10.9); Hematocrit 33.1 VOL% (42.0-52.0); Hemoglobin 10.2 GM/DL (14.0-18.0); Immature Granulocytes % 0.4 %; Immature Granulocytes Absolute 0.03 #; Lymphocytes # 1.6 10*3/uL (1.4-4.0); Mean Corpuscular HGB Conc 30.8 GM/DL (32-36); Mean Corpuscular Volume 95.4 FL (87-102); Mean Platelet Volume 10.8 FL (9.6-12.0); Monocytes # 0.6 10*3/uL (0.11-0.8); Monocytes % 8.3 % (1.7-12.7); Neutrophils % 66.8 % (38.7-73.9); Platelet Count 136 T/CUMM (130-400); Red Blood Count 3.47 MC/CUMM (3.8-5.5); Red Cell Distribution Width 15.9 % (9.3-17.3); White Blood Count 6.9 T/CUMM (4-12)
[2022-12-23 22:43] LABS: PT Patient Result 10.6 SECS (10.1-12.1)
[2022-12-23 22:52] LABS: Alanine Aminotransferase 16 U/L (16-61); Albumin 3.6 G/DL (3.4-5.0); Alkaline Phosphatase 66 U/L (45-117); Aspartate Amino Transferase 16 U/L (0-37); Bilirubin,Total < 0.39 MG/DL (0.20-1.00); Blood Urea Nitrogen 28 MG/DL (7-18); Calcium 9.2 MG/DL (8.5-10.1); Carbon Dioxide 22 MMOL/L (21-32); Chloride 111 MMOL/L (98-107); Glucose 112 MG/DL (74-106); Osmolality,Calculated 287.3 MOS/KG (273-304); Potassium 4.7 MMOL/L (3.5-5.1); Sodium 141 MMOL/L (136-145)
[2022-12-23 23:25] LABS: Bilirubin,Urine Negative (Negative); Blood, Urine Trace mg/dL (Negative); Glucose,Urine (UA) Negative (Negative); Hyaline Casts,Urine 3 /LPF (0-3); Ketones,Urine Negative (Negative); Mucus,Urine Occasional /LPF (Occasional); Nitrite,Urine Positive (Negative); Protein,Urine Negative (Negative); Squamous Epithelial Cell,Urine Occasional /HPF (0-10); Urine Appearance Clear (Clear); Urine Color Yellow (Yellow); Urine Specific Gravity 1.025 (1.001-1.035); Urine Urobilinogen 0.2 eU/dL (<2.0); Urine pH 5.5 (4.5-8.0)
[2022-12-23] MEDS ORDERED: cefTRIAXone 1,000 MG in SODIUM CHLORIDE 0.9% 100 ML IV STA (23:52)
[2022-12-24] MEDS ORDERED: MORPHINE 2 MG/1 ML SYRINGE IV PRN (00:35)
[2022-12-24] MEDS ORDERED: ACETAMINOPHEN 325 MG TABLET PO PRN (00:35)
[2022-12-24] MEDS ORDERED: ALBUTEROL/IPRATROPIUM 3 ML NEB RESP TX PRN (00:35)
[2022-12-24] MEDS ORDERED: hydrALAZINE 20 MG/1 ML VIAL IV PRN (00:35)
[2022-12-24] MEDS ORDERED: NICOTINE 21 MG/24 HR PATCH TRANSDERM PRN (00:35)
[2022-12-24] MEDS ORDERED: GLUCAGON 1 MG VIAL IM PRN (00:35)
[2022-12-24] MEDS ORDERED: guaiFENesin/DM ER 600-30 MG TABLET PO PRN (00:35)
[2022-12-24] MEDS ORDERED: ONDANSETRON 4 MG/2 ML VIAL IV PRN (00:35)
[2022-12-24] MEDS ORDERED: DEXTROSE 10% 250 ML BAG IV PRN (00:46)
[2022-12-24] MEDS: ZALEPLON 5 MG CAPSULE PO PRN ×3 (02:00→22:42)
[2022-12-24 05:01] LABS: Basophils % 0.3 % (0.0-0.8); Eosinophils # 0.1 10*3/uL (0.0-0.87); Eosinophils % 1.1 % (0.00-10.9); Hematocrit 31.3 VOL% (42.0-52.0); Immature Granulocytes % 0.5 %; Immature Granulocytes Absolute 0.03 #; Lymphocytes # 1.3 10*3/uL (1.4-4.0); Lymphocytes % 20.1 % (21.2-54.2); Mean Corpuscular HGB Conc 31.9 GM/DL (32-36); Mean Corpuscular Volume 93.4 FL (87-102); Monocytes # 0.5 10*3/uL (0.11-0.8); Monocytes % 7.3 % (1.7-12.7); Neutrophils % 70.7 % (38.7-73.9); Platelet Count 136 T/CUMM (130-400); Red Blood Count 3.35 MC/CUMM (3.8-5.5); Red Cell Distribution Width 15.9 % (9.3-17.3); White Blood Count 6.6 T/CUMM (4-12)
[2022-12-24 05:22] LABS: Calcium 9.2 MG/DL (8.5-10.1); Potassium 4.2 MMOL/L (3.5-5.1)
[2022-12-24] MEDS ORDERED: NITROGLYCERIN SL 0.4 MG TABLET SL PRN (08:58)
[2022-12-24] MEDS ORDERED: POLYETHYLENE GLYCOL POWDER 17 GM PACK PO PRN (08:58)
[2022-12-24] MEDS: INSULIN LISPRO 100 UNIT/ML SUBCUT SCH ×3 (12:16→20:23)
[2022-12-24] MEDS: BISACODYL 5 MG TABLET PO SCH (12:30)
[2022-12-24] MEDS: cefTRIAXone 1,000 MG in SODIUM CHLORIDE 0.9% 100 ML IV SCH ×2 (12:30→20:24)
[2022-12-24] MEDS: TICAGRELOR 90 MG TABLET PO SCH ×2 (12:30→20:23)
[2022-12-24] MEDS: PANTOPRAZOLE 40 MG TABLET PO SCH (12:30)
[2022-12-24] MEDS: sitaGLIPtin 25 MG TABLET PO SCH (12:31)
[2022-12-24] MEDS: lisinopriL 10 MG TABLET PO SCH (12:31)
[2022-12-24] MEDS: SIMVASTATIN 40 MG TABLET PO SCH (20:23)
[2022-12-24] MEDS: ASPIRIN EC 81 MG TABLET PO SCH (20:25)
[2022-12-25] MEDS: diphenhydrAMINE CAP 25 MG CAPSULE PO PRN ×2 (01:52→21:07)
[2022-12-25 05:06] LABS: Basophils % 0.1 % (0.0-0.8); Eosinophils % 0.6 % (0.00-10.9); Hematocrit 34.2 VOL% (42.0-52.0); Hemoglobin 10.7 GM/DL (14.0-18.0); Immature Granulocytes % 0.3 %; Immature Granulocytes Absolute 0.02 #; Lymphocytes # 1.5 10*3/uL (1.4-4.0); Lymphocytes % 21.9 % (21.2-54.2); Mean Corpuscular HGB Conc 31.3 GM/DL (32-36); Mean Corpuscular Volume 93.4 FL (87-102); Mean Platelet Volume 11.3 FL (9.6-12.0); Monocytes # 0.5 10*3/uL (0.11-0.8); Monocytes % 7.4 % (1.7-12.7); Neutrophils % 69.7 % (38.7-73.9); Platelet Count 128 T/CUMM (130-400); Red Blood Count 3.66 MC/CUMM (3.8-5.5); Red Cell Distribution Width 15.9 % (9.3-17.3); White Blood Count 6.9 T/CUMM (4-12)
[2022-12-25 05:41] LABS: Calcium 9.3 MG/DL (8.5-10.1); Osmolality,Calculated 286.1 MOS/KG (273-304); Potassium 4.4 MMOL/L (3.5-5.1)
[2022-12-25] MEDS: INSULIN LISPRO 100 UNIT/ML SUBCUT SCH ×4 (08:00→21:08)
[2022-12-25] MEDS: lisinopriL 10 MG TABLET PO SCH (09:33)
[2022-12-25] MEDS: CYANOCOBALAMIN 500 MCG TABLET PO SCH (09:33)
[2022-12-25] MEDS: TICAGRELOR 90 MG TABLET PO SCH ×2 (09:33→21:07)
[2022-12-25] MEDS: sitaGLIPtin 25 MG TABLET PO SCH (09:33)
[2022-12-25] MEDS: BISACODYL 5 MG TABLET PO SCH (09:33)
[2022-12-25] MEDS: PANTOPRAZOLE 40 MG TABLET PO SCH (09:33)
[2022-12-25] MEDS: cefTRIAXone 1,000 MG in SODIUM CHLORIDE 0.9% 100 ML IV SCH ×2 (09:34→21:08)
[2022-12-25] MEDS: ASPIRIN EC 81 MG TABLET PO SCH (21:07)
[2022-12-25] MEDS: SIMVASTATIN 40 MG TABLET PO SCH (21:07)
[2022-12-26] MEDS: ZALEPLON 5 MG CAPSULE PO PRN ×2 (01:35→21:47)
[2022-12-26 05:04] LABS: Basophils % 0.2 % (0.0-0.8); Eosinophils # 0.1 10*3/uL (0.0-0.87); Eosinophils % 0.8 % (0.00-10.9); Hematocrit 33.5 VOL% (42.0-52.0); Hemoglobin 10.3 GM/DL (14.0-18.0); Immature Granulocytes % 0.3 %; Immature Granulocytes Absolute 0.02 #; Lymphocytes # 1.2 10*3/uL (1.4-4.0); Lymphocytes % 19.8 % (21.2-54.2); Mean Corpuscular HGB Conc 30.7 GM/DL (32-36); Mean Corpuscular Volume 95.2 FL (87-102); Mean Platelet Volume 10.6 FL (9.6-12.0); Monocytes # 0.7 10*3/uL (0.11-0.8); Neutrophils % 67.9 % (38.7-73.9); Platelet Count 119 T/CUMM (130-400); Red Blood Count 3.52 MC/CUMM (3.8-5.5); Red Cell Distribution Width 15.9 % (9.3-17.3); White Blood Count 5.91 T/CUMM (4-12)
[2022-12-26 05:25] LABS: Calcium 9.3 MG/DL (8.5-10.1); Potassium 4.2 MMOL/L (3.5-5.1)
[2022-12-26] MEDS: INSULIN LISPRO 100 UNIT/ML SUBCUT SCH ×4 (08:38→21:47)
[2022-12-26] MEDS: BISACODYL 5 MG TABLET PO SCH (09:38)
[2022-12-26] MEDS: PANTOPRAZOLE 40 MG TABLET PO SCH (09:38)
[2022-12-26] MEDS: cefTRIAXone 1,000 MG in SODIUM CHLORIDE 0.9% 100 ML IV SCH (09:38)
[2022-12-26] MEDS: lisinopriL 10 MG TABLET PO SCH (09:38)
[2022-12-26] MEDS: hydrALAZINE 25 MG TABLET PO SCH ×2 (09:38→21:47)
[2022-12-26] MEDS: CYANOCOBALAMIN 500 MCG TABLET PO SCH (09:38)
[2022-12-26] MEDS: TICAGRELOR 90 MG TABLET PO SCH ×2 (09:38→21:47)
[2022-12-26] MEDS: sitaGLIPtin 25 MG TABLET PO SCH (09:38)
[2022-12-26] MEDS ORDERED: VANCOMYCIN INJ 1,500 MG in SODIUM CHLORIDE 0.9% 500 ML IV SCH (20:00)
[2022-12-26] MEDS: SIMVASTATIN 40 MG TABLET PO SCH (21:47)
[2022-12-26] MEDS: ASPIRIN EC 81 MG TABLET PO SCH (21:47)
[2022-12-27 06:12] LABS: Basophils % 0.3 % (0.0-0.8); Eosinophils # 0.1 10*3/uL (0.0-0.87); Eosinophils % 1.9 % (0.00-10.9); Hemoglobin 10.1 GM/DL (14.0-18.0); Immature Granulocytes % 0.2 %; Immature Granulocytes Absolute 0.01 #; Lymphocytes # 1.5 10*3/uL (1.4-4.0); Lymphocytes % 23.7 % (21.2-54.2); Mean Corpuscular HGB Conc 31.6 GM/DL (32-36); Mean Corpuscular Volume 93.8 FL (87-102); Mean Platelet Volume 11.2 FL (9.6-12.0); Monocytes # 0.6 10*3/uL (0.11-0.8); Monocytes % 9.7 % (1.7-12.7); Neutrophils % 64.2 % (38.7-73.9); Platelet Count 118 T/CUMM (130-400); Red Blood Count 3.41 MC/CUMM (3.8-5.5); Red Cell Distribution Width 15.9 % (9.3-17.3); White Blood Count 6.16 T/CUMM (4-12)
[2022-12-27 06:40] LABS: Calcium 9.3 MG/DL (8.5-10.1); Osmolality,Calculated 294.1 MOS/KG (273-304); Potassium 4.3 MMOL/L (3.5-5.1)
[2022-12-27] MEDS: BISACODYL 5 MG TABLET PO SCH (09:40)
[2022-12-27] MEDS: TICAGRELOR 90 MG TABLET PO SCH ×2 (09:40→21:42)
[2022-12-27] MEDS: sitaGLIPtin 25 MG TABLET PO SCH (09:40)
[2022-12-27] MEDS: PANTOPRAZOLE 40 MG TABLET PO SCH (09:40)
[2022-12-27] MEDS: CYANOCOBALAMIN 500 MCG TABLET PO SCH (09:41)
[2022-12-27] MEDS: hydrALAZINE 25 MG TABLET PO SCH ×2 (09:41→21:42)
[2022-12-27] MEDS: SODIUM CHLORIDE 0.9% 1,000 ML IV SCH ×2 (09:42→21:48)
[2022-12-27] MEDS ORDERED: TUBERCULIN SKIN TEST 0.1 ML SYRINGE INTRADERM ONE (10:00)
[2022-12-27] MEDS: INSULIN LISPRO 100 UNIT/ML SUBCUT SCH ×4 (10:27→21:53)
[2022-12-27] MEDS: ASPIRIN EC 81 MG TABLET PO SCH (21:42)
[2022-12-27] MEDS: SIMVASTATIN 40 MG TABLET PO SCH (21:42)
[2022-12-28] MEDS: INSULIN LISPRO 100 UNIT/ML SUBCUT SCH ×4 (07:58→21:30)
[2022-12-28 08:07] LABS: Basophils % 0.2 % (0.0-0.8); Eosinophils # 0.1 10*3/uL (0.0-0.87); Eosinophils % 2.1 % (0.00-10.9); Hematocrit 30.8 VOL% (42.0-52.0); Hemoglobin 9.8 GM/DL (14.0-18.0); Immature Granulocytes % 0.4 %; Immature Granulocytes Absolute 0.02 #; Lymphocytes % 17.7 % (21.2-54.2); Mean Corpuscular HGB Conc 31.8 GM/DL (32-36); Mean Corpuscular Volume 92.8 FL (87-102); Mean Platelet Volume 11.2 FL (9.6-12.0); Monocytes # 0.5 10*3/uL (0.11-0.8); Monocytes % 8.9 % (1.7-12.7); Neutrophils % 70.7 % (38.7-73.9); Platelet Count 117 T/CUMM (130-400); Red Blood Count 3.32 MC/CUMM (3.8-5.5); Red Cell Distribution Width 15.4 % (9.3-17.3)
[2022-12-28 08:21] LABS: Calcium 8.3 MG/DL (8.5-10.1); Osmolality,Calculated 290.3 MOS/KG (273-304); Potassium 4.3 MMOL/L (3.5-5.1)
[2022-12-28] MEDS ORDERED: PHENOL 1.4% THROAT SPRAY 177 ML BOTTLE PO PRN (08:53)
[2022-12-28] MEDS ORDERED: POLYVINYL 0.5%/POVIDONE 0.6% OPH SOLN 15 ML BOTTLE BOTH EYES PRN (08:53)
[2022-12-28] MEDS: hydrALAZINE 25 MG TABLET PO SCH ×2 (09:12→21:32)
[2022-12-28] MEDS: TICAGRELOR 90 MG TABLET PO SCH ×2 (09:12→21:32)
[2022-12-28] MEDS: sitaGLIPtin 25 MG TABLET PO SCH (09:12)
[2022-12-28] MEDS: BISACODYL 5 MG TABLET PO SCH (09:12)
[2022-12-28] MEDS: PANTOPRAZOLE 40 MG TABLET PO SCH (09:13)
[2022-12-28] MEDS: CYANOCOBALAMIN 500 MCG TABLET PO SCH (09:13)
[2022-12-28] MEDS: NYSTATIN 500,000 UNIT/5 ML UDCUP SWISH/SWAL SCH ×3 (11:24→21:32)
[2022-12-28] MEDS: ENOXAPARIN 30 MG/0.3 ML SYRINGE SUBCUT SCH (11:25)
[2022-12-28] MEDS: SODIUM CHLORIDE 0.9% 1,000 ML IV SCH (17:13)
[2022-12-28] MEDS: ASPIRIN EC 81 MG TABLET PO SCH (21:32)
[2022-12-28] MEDS: SIMVASTATIN 40 MG TABLET PO SCH (21:32)
[2022-12-29] MEDS: SODIUM CHLORIDE 0.9% 1,000 ML IV SCH (06:33)
[2022-12-29] MEDS: INSULIN LISPRO 100 UNIT/ML SUBCUT SCH ×2 (08:04→12:29)
[2022-12-29 08:12] VITALS: BP 137/68
[2022-12-29] MEDS ORDERED: NYSTATIN 500,000 UNIT/5 ML UDCUP SWISH/SWAL SCH (09:00)
[2022-12-29] MEDS: CYANOCOBALAMIN 500 MCG TABLET PO SCH (09:20)
[2022-12-29] MEDS: PANTOPRAZOLE 40 MG TABLET PO SCH (09:20)
[2022-12-29] MEDS: sitaGLIPtin 25 MG TABLET PO SCH (09:20)
[2022-12-29] MEDS: BISACODYL 5 MG TABLET PO SCH (09:20)
[2022-12-29] MEDS: hydrALAZINE 25 MG TABLET PO SCH (09:20)
[2022-12-29] MEDS: TICAGRELOR 90 MG TABLET PO SCH (09:20)
[2022-12-29] MEDS: ENOXAPARIN 30 MG/0.3 ML SYRINGE SUBCUT SCH (09:21)
== END 2022-12-29 12:27 | disposition swing bed (61) | DRG 690 ==
LOC: EDUNIT# → EDBD → N.ED 21:25 → N.EDINP 12-24 00:44 → N.3E 12-24 14:28
PROVIDERS: ADMIT Internal Medicine; ATTEND Internal Medicine